=== PATIENT | female | born 1970 | race Native Hawaiian/Other Pacific Islander ===

== ENCOUNTER 2019-04-15 10:41 | Emergency (ER) | payer OTHER ==
[~2019-04-15] VITALS: Ht 162.6 cm; Wt 70.3 kg
[2019-04-15 10:41] VITALS: TEMP 98.1
[2019-04-15] MEDS ORDERED: TRAZ50TA36 PO (11:00)
[2019-04-15] MEDS ORDERED: ROBAXIN-750750 MG PO (11:00)
[2019-04-15] MEDS ORDERED: GRALISE300 MG PO (11:00)
[2019-04-15 11:49] VITALS: BP 126/76
== END 2019-04-15 11:49 | disposition home or self-care (01) ==
LOC: ED 10:41
PROC: 0HQGXZZ Repair Left Hand Skin, External Approach (ICD-10-PCS; principal; 2019-04-15)
DX: S61.213A Laceration without foreign body of left middle finger without damage to nail, initial encounter (principal); S61.215A Laceration without foreign body of left ring finger without damage to nail, initial encounter; W27.5XXA Contact with paper-cutter, initial encounter; Y92.098 Other place in other non-institutional residence as the place of occurrence of the external cause
CPT/HCPCS: 90471; 90715; 99283